=== PATIENT | male | born 1995 | race Caucasian/White ===

== ENCOUNTER 2018-06-16 03:14 | Inpatient (IN) ==
[2018-06-16] MEDS ORDERED: KETOROLAC TROMETHAMINE 15 MG/ML VIAL IV STA ×2 (03:52→05:18)
[2018-06-16] MEDS ORDERED: SODIUM CHLORIDE 0.9% 1000ML 1,000 ML IV ONE (04:29)
[2018-06-16 04:46] LABS: Basophils # (auto) 0.05 K/uL (0-0.2); Basophils % (auto) 0.6 %; Eosinophils # (auto) 0.21 K/uL (0-0.5); Eosinophils % (auto) 2.7 %; Hematocrit (blood only) 40.6 % (42-52); Hemoglobin 14.8 g/dL (14.0-18.0); Immature Granulocytes # (auto) 0.02 K/uL (0.00-0.02); Immature Granulocytes % (auto) 0.3 %; Lymphocytes # (auto) 2.44 K/uL (1.2-3.4); Mean Corpuscular Hgb Conc 36.5 g/dL (32-36); Mean Corpuscular Volume 83.4 fL (80-100); Mean Platelet Volume 11.6 fL (7.4-10.4); Monocytes # (auto) 0.69 K/uL (0.11-0.59); Monocytes % (auto) 8.8 %; Neutrophils # (auto) 4.45 K/uL (1.4-6.5); Neutrophils % (auto) 56.6 %; Platelet Count 167 K/uL (130-400); RDW Coefficient of Variation 12.2 % (11.5-14.5); RDW Standard Deviation 37.1 fL (36.4-46.3); Red Blood Count 4.87 M/uL (4.7-6.1); White Blood Count 7.86 K/uL (4.8-10.8)
[2018-06-16 04:54] LABS: BUN Creatinine Ratio 10.4 (10-20); Creatinine Clr Calc Pharmacy 103.2 ml/min; Est GFR (African American) 104.5; Est GFR (Non-African American) 90.1; Potassium 3.4 mmol/L (3.5-5.1)
[2018-06-16] MEDS ORDERED: ONDANSETRON INJ 2 MG/ML 2 ML VIAL IV STA (05:18)
[2018-06-16] MEDS ORDERED: MoRPHine SULFATE 2 MG/ML CARP IV STA (05:18)
--- NOTE | 2018-06-16 05:45 | History & Physical Report ---
Date of Service June 16, 2018 Assessment & Plan (1) Abdominal pain in male: 22 y/o M denies a significant medical history. Presented to the ER 06/13 with R sided flank pain and hematuria. He had a CT at that time demonstrating a 5 x 4 mm calculus of the mid to distal right ureter with resultant mild hydronephrosis. He was discharged from the ER as it was felt that this would pass spontaneously. He returns with worsening RLQ abdominal pain. Denies fevers or rigors. Describes occasional hematuria since then. An US follow-up demonstrated a calculus at the R UVJ consistent with the migration of his pain. Labs are unremarkable aside form hematuria. The pt is placed on IVF, analgesics, antiemetics and Flomax. He will be evaluated by urology. He is aware that smoking is deleterious to ones health. Full code - SCDs Total time for this admit including review of labs, meds, imaging, records - discussion with pt and ER attending - 33 min History of Present Illness Chief Complaint: abdominal pain Primary Care Provider: NO PCP 22 y/o M denies a significant medical history. Presented to the ER 06/13 with R sided flank pain and hematuria. He had a CT at that time demonstrating a 5 x 4 mm calculus of the mid to distal right ureter with resultant mild hydronephrosis. He was discharged from the ER as it was felt that this would pass spontaneously. He returns with worsening RLQ abdominal pain. Denies fevers or rigors. Describes occasional hematuria since then. An US follow-up demonstrated a calculus at the R UVJ consistent with the migration of his pain. Labs are unremarkable aside form hematuria. PMH: Denies Surgical: Denies Social: Smokes 1/2 pack cigarettes/wk, drinks on weekends, smokes marijuana afew times/wk. 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: No Beliefs That Will Affect Care: None Current Living Situation: Significant Other current occupational status: student current occupation: [employer] Student Feels Safe at Home: Yes Safety Concerns: Feels Safe At This Time Smoking Status: Current every day smoker Tobacco Type: cigarettes Cigarettes Per Day: 2-3 cigarettes/day Hx Alcohol Use: Yes Alcohol type: beer Hx Substance Use: Yes substance use type: marijuana Review of Systems Review of Systems: Gen: Denies fevers, night sweats, rigors, fatigue, malaise, weight loss/gain ENT: Denies congestion, throat pain, hearing loss Eyes: Denies acute visual changes CV: Denies CP, palpitations Pulmonary: Denies SOB, cough, wheezing GI: R flank pain intially, now in groin Neuro: Denies acute or unilateral weakness, acute gait impairment, headache or acute visual changes Musculoskeletal: Denies joint pain, inflammation Endocrine: Denies polydipsia, polyuria Skin: Denies acute rashe or ulcers Physical Exam Physical Exam: General: AAO x 3, no distress ENT: No erythema or exudates, no thrush Eyes: KRISHAN, EOMI Head and neck: Normocephalic, atraumatic, No JVD, neck is supple. Chest/heart: Nontender, S1,2, RRR, no murmurs, no gallops Lungs: CTAB, no wheezing or crackles Abdomen: Mildly tender in RLQ Neuro: AAO x 3, speech is clear, no unilateral weakness or loss of sensation, coordination intact Musculoskeletal: No joint inflammation, muscle tenderness, FROM Skin: No acute rashes or ulcers Extremities: No clubbing, cyanosis, edema Results & Data Vital Signs (Past 12 Hours) Vital Signs Temp Pulse Pulse Resp BP BP Pulse Ox 06/16/18 05:01 69 20 110/63 96 06/16/18 03:17 98.1 F 56 L 21 156/[address] abdomen/pelvis: 1. Mild right-sided hydroureteronephrosis secondary to a 5 x 4 x 4 mm calculus of the mid to distal right ureter at the level of S1. 2. No bowel obstruction or bowel wall thickening. 3. The appendix is not definitively seen in its entirety. No secondary signs of acute appendicitis.
--- NOTE | 2018-06-16 06:05 | XRay Report ---
KUB HISTORY: Acute right-sided flank pain with right ureteral calculus eval for right sided stone COMPARISON: CT abdomen and pelvis 06/13/2018 FINDINGS: The bowel gas pattern is non-obstructive. There is no organomegaly. The left renal shadow i s obscured by bowel gas. The previously described 5 mm calculus of the right ureter at the level of S 1 is not definitively seen on today's study. Left pelvic basin calcifications are suggestive of proba ble phleboliths. No nephrolithiasis identified. No pneumoperitoneum or pneumatosis. No fracture. IMPRESSION: No renal or ureteral calculi identified. The previously noted distal right ureteral calculus seen at the level of S1 is not identified on today's study. Electronically signed by: Gallo Rogers M.D. 06/16/2018 6:03 AM
--- NOTE | 2018-06-16 06:27 | Ultrasound Report ---
US renal/blad retro comp HISTORY: 22 years-old Male eval for right-sided ureteral stone follow-up study in a patient with rig ht hydronephrosis COMPARISON: CT abdomen and pelvis 06/13/2018 TECHNIQUE: Multiple real-time sonographic images of the kidneys and urinary bladder were obtained ass essing grayscale appearance and color flow FINDINGS: Right kidney measures 11.9 x 4.3 x 4.8 cm. Mild right-sided hydroureteronephrosis redemonstrated. No renal or ureteral calculi are seen. The left kidney measures 11.2 x 4.7 x 4.4 cm and is unremarkable without renal calculi, hydronephrosi s or suspicious mass lesions. 5 mm calculus noted about the distal right ureter at the level of the ureterovesicular junction. Righ t ureteral jet is not identified. Mild wall thickening of the urinary bladder with partial distention . Left ureteral jet is noted. IMPRESSION: 1. Persistent mild right-sided hydroureteronephrosis. 2. Distal migration of the 5 mm right ureteral calculus, now at the level of the ureterovesicular krista ction. 3. Normal left kidney. The above report was generated using voice recognition software. It may contain grammatical, syntax o r spelling errors. Electronically signed by: Gallo Rogers M.D. 06/16/2018 6:25 AM
[2018-06-16] MEDS ORDERED: ACETAMINOPHEN 325 MG TAB PO PRN (06:36)
[2018-06-16] MEDS ORDERED: MAGNESIUM HYDROXIDE SUSP 30 ML UDC PO PRN (06:36)
[2018-06-16] MEDS ORDERED: ONDANSETRON INJ 2 MG/ML 2 ML VIAL IV PRN (06:36)
[2018-06-16] MEDS ORDERED: ALUMINUM/MAGNESIUM SUSP 30 ML UDC PO PRN (06:36)
[2018-06-16] MEDS ORDERED: ZOLPIDEM TARTRATE 5 MG TAB PO PRN (06:36)
[2018-06-16] MEDS ORDERED: POLYETHYLENE (MIRALAX) 17 GM PACK PO PRN (06:36)
--- NOTE | 2018-06-16 07:56 | Urology Consultation ---
Date of Consultation June 16, 2018 Assessment & Plan (1) Hydronephrosis with renal calculous obstruction: A/P 22 yo male with R distal 5 mm ureteral stone and recurrent colic. Findings reviewed with patient. He reports he is currently more comfortable, no stones passed yet. Options reviewed - can have a trial of passage seen his improved symptoms, progression of calculus with distal location, offered endoscopic intervention today or could try to coordinate for outpatient ESWL. Seen his improvement he wishes to try to pass his stone over the course of the day - not unreasonable. Will provide diet, NPO for possible intervention tomorrow if his stone fails to pass or his symptoms persist. Patient vocalizes understanding of the treatment plan. Should be able to be discharged home with outpatient follow-up with our service if his stone passes. Thank you for allowing us to participate in this patient's acute care. Will follow. History of Present Illness Reason for Consultation: Right distal ureteral stone with persistent colic Attending Physician: Jorge Mei MD History of Present Illness Patient is a pleasant 22-year-old male who presents to the emergency room for the second time for a right ureteral stone. He was previously seen several days ago with acute onset of gross hematuria and right flank pain and underwent imaging in the emergency room demonstrating a right distal ureteral stone. He was discharged with an attempt of oral pain medication and stone passage but returned last night due to lower urinary tract symptoms, bladder pressure and recurrent intractable right flank pain. He is in the room with his girlfriend resting comfortably. He reports his pain is improved since being seen in the emergency room but he has passed no stone. He notes intermittent hematuria. Ultrasound imaging suggests a 5 mm stone at the right ureterovesical junctionand mild to moderate right sided hydro. Past notes and imaging are personally reviewed. Urologic consultation requested to assist with his acute care. This is his first stone episode. Allergies Allergy/AdvReac Type Severity Reaction Status Date / Time No Known Allergies Allergy Unverified 06/16/18 03:51 Home Medications Home Medications Medication Instructions Recorded Confirmed Type ibuprofen 400 mg PO Q6H PRN 06/16/18 06/16/18 History Patient History Medical History Hydronephrosis Renal colic on right side Ureteral calculi No acute medical problems Social History Preferred Language: Cook Islander Communication Ability: Effective Business Systems Technician Required: No Beliefs That Will Affect Care: None Current Living Situation: Significant Other current occupational status: student current occupation: [employer] Student Feels Safe at Home: Yes Safety Concerns: Feels Safe At This Time Smoking Status: Current every day smoker Tobacco Type: cigarettes Cigarettes Per Day: 2-3 cigarettes/day Hx Alcohol Use: Yes Alcohol type: beer Hx Substance Use: Yes substance use type: marijuana Immunizations: FHx noncontributory Review of Systems Constitutional: no fever and no chills Eyes: + corrective lenses; no blind spots and no diplopia Ear, Nose, Mouth, Throat: no ear trauma Respiratory: no hemoptysis Cardiovascular: no chest pain Gastrointestinal: + abdominal pain and + nausea; no coffee ground emesis Genitourinary: + hematuria Musculoskeletal: + back pain; no neck pain Integumentary: no acne and no boil Neurologic: no paralysis and no numbness Psychiatric: no hopelessness Endocrine: + fatigue Hematologic / Lymphatic: no easy bleeding and no lymphadenopathy Physical Exam Constitutional: WD/WN, vitals as above Eyes: eyes not dysmorphic ENMT: Ears: no external ear abnormality Neck: trachea midline; no anterior neck swelling Respiratory: no respiratory distress and does not use accessory muscles Cardiovascular: Vessels: radial pulses present Gastrointestinal (Abdomen): Inspection/Auscultation: abdomen not distended Percussion/Palpation: abdomen soft; abdomen nontender and no guarding Skin: normal turgor Neurologic: awake; not obtunded Psychiatric: Orientation: oriented x 3 Lymphatic: no lymphadenopathy Results & Data Vital Signs (Past 12 Hours) Vital Signs Temp Pulse Pulse Resp BP BP Pulse Ox 06/16/18 06:48 36.5 C 61 16 122/76 100 06/16/18 05:01 69 20 110/63 96 06/16/18 03:17 36.7 C 56 L 21 156/75 H 98 Laboratory Results Laboratory Results - last 48 hr 06/16/18 06/16/18 03:32 03:32 WBC 7.86 RBC 4.87 Hgb 14.8 Hct 40.6 L MCV 83.4 MCH 30.4 MCHC 36.5 H RDW Std Deviation 37.1 RDW Coeff of [place] 12.2 Plt Count 167 MPV 11.6 H Immature Gran % (Auto) 0.3 Neut % (Auto) 56.6 Lymph % (Auto) 31.0 [place] % (Auto) 8.8 Eos % (Auto) 2.7 Baso % (Auto) 0.6 Immature Gran # (Auto) 0.02 Neut # (Auto) 4.45 Lymph # (Auto) 2.44 [place] # (Auto) 0.69 H Eos # (Auto) 0.21 Baso # (Auto) 0.05 Sodium 138 Potassium 3.4 L Chloride 105 Carbon Dioxide 26 Anion Gap 7.0 BUN 12 Creatinine 1.14 Est Cr Clr Drug Dosing 103.2 Est GFR ( Amer) 104.5 Est GFR (Non-Af Amer) 90.1 BUN/Creatinine Ratio 10.4 Glucose 72 Calcium 9.0
[2018-06-16] MEDS: TAMSULOSIN HCL 0.4 MG CAP PO SCH (08:05)
[2018-06-16] MEDS: D5NSS + 20MEQ KCL 20 MEQ/1,000 ML BAG IV SCH ×2 (08:05→14:30)
[2018-06-16] MEDS: HYDROmorphone INJ 0.5 MG/0.5 ML SYR IV PRN ×3 (08:10→21:01)
--- NOTE | 2018-06-16 08:28 | Emergency Department Note ---
Entered by Edgardo No acting as a scribe for History of Present Illness General Chief complaint: Kidney Stone Stated complaint: LOW BACK PAIN, CLOUDY URINE Time Seen by Provider: 06/16/18 03:34 Source: patient Limitations: no limitations History of Present Illness Provider complaint: Right flank pain, urinary urgency, nausea Onset (ago): hour(s) (4.5) Location: back (Right flank) Pain Consistency: + constant Maximum Pain Intensity: 6 Quality: + other (Flank pain, urinary urgency) Associated symptoms: + nausea/vomiting Treatments prior to arrival: none The patient is a 22 year old male who presents to the Emergency Room with complaints of constant right sided flank pain and urinary urgency that began about 4.5 hours ago. The patient states that he was here in the Emergency Department 4 days ago for hematuria and flank pain. He received a CT scan that was initially red by Camille as negative and without any stones. Last night at 2300, 4.5 hours ago, the patient began to experience increased urinary urgency. He attempted to go to the restroom but was unable to void enough to relieve the pressure in his bladder. The patient then developed pain in the right flank. He adds that he did urinate a small amount 90 minutes prior to arrival. This urine was "dark," but did not appear bloody. The patient also notes that he felt nauseous and vomited shortly prior to arrival. He denies any leg cramping or leg swelling. Home Medications Home Medications Medication Instructions Recorded Confirmed Type ibuprofen 400 mg PO Q6H PRN 06/16/18 06/16/18 History Allergies Allergy/AdvReac Type Severity Reaction Status Date / Time No Known Allergies Allergy Unverified 06/16/18 03:51 Past Med/Surg History Medical History Hydronephrosis Renal colic on right side Ureteral calculi No acute medical problems Social History Preferred Language: Jordanian Communication Ability: Effective Respiratory Physician Required: No Beliefs That Will Affect Care: None Current Living Situation: Significant Other current occupational status: student current occupation: [employer] Student Feels Safe at Home: Yes Safety Concerns: Feels Safe At This Time Smoking Status: Current every day smoker Tobacco Type: cigarettes Cigarettes Per Day: 2-3 cigarettes/day Hx Alcohol Use: Yes Alcohol type: beer Hx Substance Use: Yes substance use type: marijuana Review of Systems See HPI for pertinent positives & negatives. He denies any fever, chills, upper respiratory symptoms, or cough. He denies any dizziness lightheadedness or headaches. He denies any chest pain, shortness of breath or diaphoresis. All other systems were reviewed and were negative Physical Exam Vital Signs Vital Signs - 24 hr 06/16/18 03:17 06/16/18 05:01 06/16/18 06:48 Temperature 36.7 C 36.5 C Temperature Source Oral Oral Sepsis Recent Fever Within 48 Hours No Sepsis Action Taken by Nursing No Action Required Pulse Rate 56 L Pulse Rate [Right Finger] 69 61 Pulse Rhythm [Right Finger] Regular Regular Pulse Strength [Right Finger] Normal Normal Respiratory Rate 21 20 16 Respiratory Effort / Characteristics Non-Labored Spontaneous Non-Labored Spontaneous Respiratory Depth Normal Normal Respiratory Pattern Regular Blood Pressure 156/75 H Blood Pressure [Right Arm] 110/63 122/76 Blood Pressure Mean 102 Blood Pressure Mean [Right Arm] 78 91 Blood Pressure Position [Right Arm] Lying Pulse Oximetry 98 96 100 Oxygen Delivery Method Room Air Room Air Room Air HEENT: Head - normocephalic and atraumatic Pupils are equal, round, and reactive to light. Extraocular eye muscles are intact, and sclera are a nicteric. Nose - moist nasal mucosa without discharge. Mouth - moist buccal mucosa. Oropharynx is nonerythematous and there is no tonsillar exudate or edema noted. Neck: Supple; no JVD, nuchal rigidity, cervical lymphadenopathy. Heart: Regular rate and rhythm. There is a normal S1 and S2 with no murmurs, clicks, or gallops appreciated. Lungs: Clear to auscultation bilaterally with no wheezes, rales, or rhonchi. Abdomen: Soft, completely nontender, nondistended, with good bowel sounds. Ther e are no palpable pulsatile masses or hepatosplenomegaly. There is no guarding, rigidity, or rebound noted. Extremities: No evidence of cyanosis, clubbing, or edema. There are easily palpable peripheral pulses. Skin: warm and dry with good turgor and no rashes. Course 0336: The patient was evaluated in room A2, and a complete history and physical examination were performed. Previous electronic medical records were reviewed. An IV lock was initiated and labs were drawn as above. 0356: Ketorolac Tromethamine (Toradol) 15 mg IV 0518: I checked on the patient at this time. The pain meds improved his pain, but now the pain is returning. 0526: Ketorolac Tromethamine (Toradol) [address], Morphine Sulfate (Morphine Sulfate) 2 mg IV NOW STA, Ondansetron HCl (Zofran) 4 mg IV NOW STA 0519: I reviewed the patient's case with Dr. Hamida Bullard [facility] Hospitalist. He will evaluate the patient for further management. 0529: Sodium Chloride (Nss 1000ml) 1,000 mls @ 999 mls/hr IV Administered Medications Hydromorphone HCl (Dilaudid) 0.5 mg IV Q4H PRN PRN Reason: Pain Stop: 06/30/18 06:35 Last Admin: 06/16/18 08:10 Dose: 0.5 mg Documented by: [id number] Potassium Chloride/Dextrose/Sod Cl (D5nss + 20meq Kcl) 20 meq in 1,000 mls @ 150 mls/hr IV .Q6H40M SHANTELLE Stop: 06/16/18 20:19 Last Admin: 06/16/18 08:05 Dose: 150 mls/hr Documented by: [id number] Tamsulosin HCl (Flomax) 0.4 mg PO QAM SHANTELLE Stop: 07/16/18 08:59 Last Admin: 06/16/18 08:05 Dose: 0.4 mg Documented by: [id number] Discontinued Medications Sodium Chloride (Nss 1000ml) 1,000 mls @ 999 mls/hr IV .Q1H1M ONE Stop: 06/16/18 05:29 Last Infusion: 06/16/18 06:10 Dose: 0 mls/hr Documented by: [id number] Admin: 06/16/18 05:09 Dose: 999 mls/hr Documented by: [id number] Ketorolac Tromethamine (Toradol) 15 mg IV NOW STA Stop: 06/16/18 03:53 Last Admin: 06/16/18 03:56 Dose: 15 mg Documented by: [id number] Ketorolac Tromethamine (Toradol) 15 mg IV NOW STA Stop: 06/16/18 05:19 Last Admin: 06/16/18 05:26 Dose: 15 mg Documented by: [id number] Morphine Sulfate (Morphine Sulfate) 2 mg IV NOW STA Stop: 06/16/18 05:19 Last Admin: 06/16/18 05:27 Dose: 2 mg Documented by: [id number] Ondansetron HCl (Zofran) 4 mg IV NOW STA Stop: 06/16/18 05:19 Last Admin: 06/16/18 05:26 Dose: 4 mg Documented by: [id number] Medical Decision Making Differential Diagnosis Differential diagnosis: renal colic, hydronephrosis, cystitis, obstructive uropathy Medical Records Attestation: I reviewed the patient's medical records. Home Medications Current Medication List: was personally reviewed by me Laboratory Data Attestation: I reviewed the patient's lab results. Result diagrams: 06/16/18 03:32 06/16/18 03:32 Lab Results 06/16/18 06/16/18 Range/Units 03:32 03:32 WBC 7.86 (4.8-10.8) K/uL RBC 4.87 (4.7-6.1) M/uL Hgb 14.8 (14.0-18.0) g/dL Hct 40.6 L (42-52) % MCV 83.4 (80-100) fL MCH 30.4 (25-34) pg MCHC 36.5 H (32-36) g/dL RDW Std Deviation 37.1 (36.4-46.3) fL RDW Coeff of [place] 12.2 (11.5-14.5) % Plt Count 167 (130-400) K/uL MPV 11.6 H (7.4-10.4) fL Immature Gran % (Auto) 0.3 % Neut % (Auto) 56.6 % Lymph % (Auto) 31.0 % [place] % (Auto) 8.8 % Eos % (Auto) 2.7 % Baso % (Auto) 0.6 % Immature Gran # (Auto) 0.02 (0.00-0.02) K/uL Neut # (Auto) 4.45 (1.4-6.5) K/uL Lymph # (Auto) 2.44 (1.2-3.4) K/uL [place] # (Auto) 0.69 H (0.11-0.59) K/uL Eos # (Auto) 0.21 (0-0.5) K/uL Baso # (Auto) 0.05 (0-0.2) K/uL Sodium 138 (136-145) mmol/L Potassium 3.4 L (3.5-5.1) mmol/L Chloride 105 (98-107) mmol/L Carbon Dioxide 26 (21-32) mmol/L Anion Gap 7.0 (3-11) BUN 12 (7-18) mg/dl Creatinine 1.14 (0.6-1.4) mg/dl Est Cr Clr Drug Dosing 103.2 ml/min Est GFR ( Amer) 104.5 Est GFR (Non-Af Amer) 90.1 BUN/Creatinine Ratio 10.4 (10-20) Glucose 72 (70-99) mg/dl Calcium 9.0 (8.5-10.1) mg/dl Imaging Data Radiologist's Impression: KUB HISTORY: Acute right-sided flank pain with right ureteral calculus eval for right sided stone COMPARISON: CT abdomen and pelvis 06/13/2018 FINDINGS: The bowel gas pattern is non-obstructive. There is no organomegaly. The left renal shadow is obscured by bowel gas. The previously described 5 mm calculus of the right ureter at the level of S1 is not definitively seen on today's study. Left pelvic basin calcifications are suggestive of probable phleboliths. No nephrolithiasis identified. No pneumoperitoneum or pneumatosis. No fracture. IMPRESSION: No renal or ureteral calculi identified. The previously noted distal right ureteral calculus seen at the level of S1 is not identified on today's study. Electronically signed by: Gallo Rogers M.D. 06/16/2018 6:03 AM US RENAL: There is a 5 mm shadowing stone in the distal right ureter near the UVJ, causing mild right hydronephrosis and hydroureter. Normal left kidney. Mild bladder wall thickening is probably related to incomplete distention. Cysti tis is difficult to exculse. Blood Pressure Blood Pressure Findings: Normal blood pressure MDM Narrative The patient is a 22 year old male who presents to the ED with urinary urgency and flank pain. Differential diagnosis includes renal colic, hydronephrosis, cystitis, obstructive uropathy. The patient was seen here 2 days ago in the emergency department with similar complaints and hematuria. The original CAT scan was interpreted by stat read and a 5 mm stone, unfortunately, was missed on that scan. The radiologist here at [facility] [address] [facility] over read this study and alerted staff here in the emergency department. On 2 separate occasions, the charge nurses tried to contact the patient with the additional findings on CAT scan but were unable to make contact. They left messages on the cell phone. When questioning the patient tonight about those messages, he never received them. We confirmed that the telephone number documented in the medical record was inaccurate. We corrected that tonight. The patient's pain was adequately treated with IV analgesia. The patient will be evaluated by the [facility] [address] [facility] Hospitalist for further inpatient care and urology will be consulted. Impression & Plan Hydronephrosis with renal calculous obstruction Discharge Plan Visit Data *Final* Discharge Date/Time: 06/16/18 06:21 Chief Complaint: Kidney Stone Stated Complaint: LOW BACK PAIN, CLOUDY URINE ED Provider: Libby Bahena Discharge Problem: Hydronephrosis with renal calculous obstruction Patient Disposition: Admitted As Inpatient Discharge Instructions Interventions: ED Discharge Assessment Last Done: 06/16/18 06:21 The scribe's documentation has been prepared under my direction and personally reviewed by me in its entirety. I confirm that the note above accurately reflects all work, treatment, procedures, and medical decision making performed by me.
--- NOTE | 2018-06-16 20:45 | History & Physical Bridge Note ---
Date of Service June 16, 2018 History & Physical Bridge Note I have examined the patient, reviewed the History & Physical and in the interval since the performance of the History & Physical I have noted the following changes of clinical significance: Patient still having intermittent pain responds to IV pain medicine. He is tolerating p.o. without nausea or vomiting. Plan is for cystoscopy and stent placement in the morning if he does not pass the stone by then Vitals reviewed Gen: AAOx3, NAD HEENT: Anicteric sclerae, EOMI CV: RRR no mgr nl S1S2 Pulm: CTAB no wcr Abd: +BS soft NT ND no masses or hernias Ext: No edema, 2+ DP pulses Skin: No rashes, warm/dry Neuro: Full strength throughout
[2018-06-17] MEDS: D5W AND NSS 1,000 ML IV SCH ×4 (01:48→23:54)
[2018-06-17] MEDS ORDERED: CIPROFLOXACIN 400 MG/200 ML BAG IV SCH (06:00)
--- NOTE | 2018-06-17 07:53 | XRay Report ---
XR KUB/Abdomen 1 view CLINICAL HISTORY: stone disease nephrocalcinosis COMPARISON STUDY: 06/16/2018 FINDINGS: The soft tissues, psoas shadows, renal outlines and intestinal gas pattern appear normal. T here is no evidence for bowel obstruction. No abnormal abdominal calcifications are seen. Small calci fication medial aspect right soft tissue pelvis. I cannot exclude distally right ureteral calculus. T his may been present on the prior study. IMPRESSION: 1. Potential distal right ureteral calculus versus vascular calcification. 2. otherwise negative for nephrocalcinosis. The above report was generated using voice recognition software. It may contain grammatical, syntax or spelling errors. Electronically signed by: Tyrone Brower M.D. 06/17/2018 7:51 AM
[2018-06-17] MEDS: TAMSULOSIN HCL 0.4 MG CAP PO SCH (08:38)
[2018-06-17] MEDS: HYDROmorphone INJ 0.5 MG/0.5 ML SYR IV PRN ×3 (08:41→23:12)
--- NOTE | 2018-06-17 09:21 | Anesthesiology Consultation ---
Date of Service June 17, 2018 Assessment & Plan (1) Hydronephrosis: (2) Encounter for pre-operative examination: Chart Review Chart Review: Acceptable Risk for Surgery and Patient NOT seen in Pre Admission Testing Consults Requested none NPO Date Last Intake of Fluids: 06/16/18 Time Last Intake of Fluids: 23:59 Date Last Intake of Solids: 06/16/18 History Surgery Operation Date: 06/17/18 13:05 Proposed Procedures p Cystoscopy, Right Retrograde Pyelogram, Ureteral Stent Placement, Possible Ureteroscopy, Laser Lithotripsy - Dereje Stratton II, DO Height/Weight Height: 1.85 m Weight: 70.364 kg Allergies Allergy/AdvReac Type Severity Reaction Status Date / Time No Known Allergies Allergy Unverified 06/16/18 03:51 Medications Home Medications Medication Instructions Recorded Confirmed Last Taken ibuprofen 400 mg PO Q6H PRN 06/16/18 06/16/18 03/18/18 03:00 400mg Active Medications Generic Name Dose Route Start Last Admin Trade Name Freq PRN Reason Stop Dose Admin Hydromorphone HCl 0.5 mg 06/16/18 06:36 06/17/18 08:41 Dilaudid IV 06/30/18 06:35 0.5 mg Q4H PRN Administration Pain Dextrose/Sodium Chloride 1,000 mls @ 125 mls/hr 06/17/18 01:30 06/17/18 08:41 D5w And Nss IV 07/17/18 01:29 125 mls/hr .Q8H SHANTELLE Administration Ondansetron HCl 4 mg 06/16/18 06:36 06/16/18 16:31 Zofran IV 07/16/18 06:35 4 mg Q6H PRN Administration Nausea Tamsulosin HCl 0.4 mg 06/16/18 09:00 06/17/18 08:38 Flomax PO 07/16/18 08:59 0.4 mg QAM SHANTELLE Administration Past Medical History Medical History Hydronephrosis Renal colic on right side Ureteral calculi No acute medical problems Past Surgical History Surgical History No history of previous surgery Social History Smoking Status: Current every day smoker tobacco type: cigarettes Smoking cigarettes per day: 2-3 cigarettes/day Hx Alcohol Use: Yes Alcohol type: beer alcohol intake frequency: a few times a week Hx Substance Use: Yes substance use type: marijuana Physical Exam Vital Signs Last Vital Signs Temp 36.4 C L 06/17/18 08:00 Pulse 59 L 06/17/18 08:00 Resp 10 L 06/17/18 08:00 BP 98/62 L 06/17/18 08:00 Pulse Ox 99 06/17/18 08:00 Testing Laboratory Results 06/16/18 03:32 06/16/18 03:32 (1) Hydronephrosis Hydronephrosis type: with ureteral calculous obstruction Qualified Code(s): N13.2 - Hydronephrosis with renal and ureteral calculous obstruction
--- NOTE | 2018-06-17 09:28 | Urology Progress Note ---
Date of Service June 17, 2018 Assessment & Plan (1) Hydronephrosis with renal calculous obstruction: A/P 22 yo male with R distal 5 mm ureteral stone, mild hydro and recurrent colic. Unable to spontaneously pass stone with IV fluids and tamsulosin. Renal colic requiring IV pain control. Options discussed with patient. He would like to move forward with surgical treatment today. Continue NPO status, strain all urine. Findings reviewed with Dr. Stratton. Given his persistent renal colic and urinary symptoms in the context of an obstructing R stone, will proceed with OR for cysto, R RPG and R stent placement, possible ureteroscopy, laser litho, stone basketing depending on findings. Risks and benefits to be reviewed with patient by Dr. Stratton. OR notified. Will cover with IV Cipro preoperatively. Subjective 22yo M with 5mm R distal ureteral stone. Pt doing okay through the evening, however still requiring IV pain control. Continues to strain urine, has not passed stone. KUB demonstrates distal stone persisting, minimal migration. Pt continues to describe reflux pain with voiding. Some urgency/frequency. Some bladder spasms. Denies hematuria/dysuria. Review of Systems Review of Systems: All systems reviewed & are unremarkable except as noted in HPI & below Physical Exam Physical Exam: A&Ox3 RRR abd soft, nontender Results & Data Vital Signs (Past 12 Hours) Vital Signs Temp Pulse Pulse Resp BP Pulse Ox 06/17/18 08:00 36.4 C L 59 L 10 L 98/62 L 99 06/16/18 23:32 36.7 C 58 L 14 119/62 98 Laboratory Results Laboratory Results - last 48 hr 06/16/18 06/16/18 03:32 03:32 WBC 7.86 RBC 4.87 Hgb 14.8 Hct 40.6 L MCV 83.4 MCH 30.4 MCHC 36.5 H RDW Std Deviation 37.1 RDW Coeff of [place] 12.2 Plt Count 167 MPV 11.6 H Immature Gran % (Auto) 0.3 Neut % (Auto) 56.6 Lymph % (Auto) 31.0 [place] % (Auto) 8.8 Eos % (Auto) 2.7 Baso % (Auto) 0.6 Immature Gran # (Auto) 0.02 Neut # (Auto) 4.45 Lymph # (Auto) 2.44 [place] # (Auto) 0.69 H Eos # (Auto) 0.21 Baso # (Auto) 0.05 Sodium 138 Potassium 3.4 L Chloride 105 Carbon Dioxide 26 Anion Gap 7.0 BUN 12 Creatinine 1.14 Est Cr Clr Drug Dosing 103.2 Est GFR ( Amer) 104.5 Est GFR (Non-Af Amer) 90.1 BUN/Creatinine Ratio 10.4 Glucose 72 Calcium 9.0
[2018-06-17] MEDS ORDERED: PROPOFOL IV EMULSION 10 MG/ML 20 ML VIAL IV ONE (12:43)
[2018-06-17] MEDS ORDERED: LIDOCAINE HCL 2% 2 ML VIAL/AMP(20MG/ML) INFIL ONE (12:43)
[2018-06-17] MEDS ORDERED: ONDANSETRON INJ 2 MG/ML 2 ML VIAL ONE (12:43)
[2018-06-17] MEDS ORDERED: MIDAZOLAM HCL 1 MG/ML 2ML VIAL ONE (12:43)
[2018-06-17] MEDS ORDERED: fentaNYL citrate 100 MCG/2 ML VIAL ONE (12:44)
[2018-06-17] MEDS ORDERED: LACTATED RINGER'S 1,000 ML IV SCH (13:00)
[2018-06-17] MEDS ORDERED: ePHEDrine sulfate 50 MG/ML AMP IV PRN ×2 (13:00→13:29)
[2018-06-17] MEDS ORDERED: ATROPINE SULFATE 0.1 MG/ML 10ML SYR IV PRN ×2 (13:00→13:29)
[2018-06-17] MEDS ORDERED: SCOPOLAMINE 1.5 MG TDSY ONE (13:24)
[2018-06-17] MEDS ORDERED: ONDANSETRON INJ 2 MG/ML 2 ML VIAL IV PRN (13:29)
[2018-06-17] MEDS ORDERED: IOTHALAMATE MEGLUMINE II 17.2% 250 ML VIAL ONE (13:33)
[2018-06-17] MEDS ORDERED: DEXAMETHASONE SOD INJ 4 MG/ML VIAL ONE (14:22)
--- NOTE | 2018-06-17 14:36 | Operative Report ---
Post Operative Report Pre & Post Diagnosis Obstructing right Stone Same Operation Date: 06/17/18 13:05 <No data on this case meets the specified criteria> Procedure Cystoscopy with right ureteroscopy and laser lithotripsy and stone extraction and retrograde pyelogram and stent placement. Operation Date: 06/17/18 13:05 <No data on this case meets the specified criteria> Surgeon Dereje Stratton, II, DO Aquatic Performer None Estimated Blood Loss 1 Findings Consistent with Post-Op Diagnosis Specimens Stone right ureter Drains 6 Fr Multilength Anesthesia Type General Complications none Disposition Disposition: Recovery Room Indications Obstructing stone that failed passage and hydration. Risks and benefits discussed at length. Description of Procedure Patient was consented and brought back to the operating room. Patient was placed under anesthesia in the supine position and moved to the dorsal lithotomy position. Patient was prepped and draped in the regular sterile fashion. A time out was completed. A 30degree Cystoscope was placed into the bladder and the entire bladder was examined. The UO's were identified. The UO was cannulized with a catheter and a retrograde pyelogram was completed. A wire was then placed. The ureteroscope was taken into the ureter. The stone was identified in the distal ureter. A laser fiber was selected and the stones were pulverized to dust and small fragments. Larger fragments were grasped and removed and sent for analysis. The entire area was once again examined. No residual large fragments or areas of concern were noted. The scope was slowly removed with the wire left in place. Contrast was placed through the scope for a pyelogram to assist in stent placement. The entire ureter was examined as the scope was slowly removed. No obstructions or other areas of concern were noted. With the wire in place, a 6 Fr Double J stent was placed. It was confirmed with fluoroscopy. With the stent in place, the bladder was emptied. The scope was removed. The patient was cleaned, aroused from anesthesia, and transferred to the pacu in stable condition having tolerated the procedure well with no complications. I was present and participated in all aspects of the procedure. The patient will be monitored in the PACU until transferred. I attest to the content of the Intraoperative Record and any orders documented therein. Any exceptions are noted below.
--- NOTE | 2018-06-17 15:05 | Fluoroscopy Report ---
FL retrograde includes kub HISTORY: 22 years-old Male RIGHT RETROGRADE/CYSTO right-sided cystourethrogram with stent placement COMPARISON: CT abdomen and pelvis 06/13/2018 TECHNIQUE: 4 spot fluoroscopic images of the abdomen and pelvis were obtained utilizing 27.6 seconds fluoroscopy time FINDINGS: A guidewire is noted within the right ureter. Contrast opacification of the right ureter and renal co llecting system demonstrates persistent hydroureteronephrosis. Subsequent images demonstrate placemen t of a right ureteral stent which appears to be in satisfactory positioning. IMPRESSION: Fluoroscopic assistance as above. Please see procedural report for further details. The above report was generated using voice recognition software. It may contain grammatical, syntax o r spelling errors. Electronically signed by: Gallo Rogers M.D. 06/17/2018 3:03 PM
[2018-06-17] MEDS: fentaNYL citrate 100 MCG/2 ML VIAL IV PRN ×4 (15:18→15:38)
--- NOTE | 2018-06-17 15:55 | Anesthesiology Progress Note ---
Date of Service June 17, 2018 Anesthesia Post Procedure Vital Signs Vital Signs: Temp Pulse Pulse Pulse Resp BP BP 06/17/18 15:45 36.4 C L 52 L 13 105/52 L 06/17/18 15:35 36.4 C L 58 L 11 L 109/62 06/17/18 15:33 36.4 C L 52 L 16 99/58 L 06/17/18 15:25 59 L 15 105/56 L 06/17/18 15:15 54 L 16 95/54 L 06/17/18 15:05 59 L 16 97/59 L 06/17/18 14:58 36.2 C L 62 16 100/55 L 06/17/18 12:35 36.5 C 60 60 16 112/82 06/17/18 09:38 55 L 11 L 112/72 06/17/18 08:00 36.4 C L 59 L 10 L 98/62 L 06/16/18 23:32 36.7 C 58 L 14 119/62 Pulse Ox 06/17/18 15:45 99 06/17/18 15:35 100 06/17/18 15:33 98 06/17/18 15:25 98 06/17/18 15:15 99 06/17/18 15:05 96 06/17/18 14:58 97 06/17/18 12:35 99 06/17/18 09:38 06/17/18 08:00 99 06/16/18 23:32 98 Pain Intensity Lower Back: Pain Intensity: 4 Notes Mental Status: alert / awake / arousable and participated in evaluation Patient Amnestic to Procedure: Yes Nausea / Vomiting: adequately controlled Pain: adequately controlled Airway Patency, RR, SpO2: stable & adequate BP & HR: stable & adequate Hydration State: stable & adequate Anesthetic Complications: no major complications apparent and Pt Satisfied with anesthetic care
[2018-06-17] MEDS: TRAMADOL HCL 50 MG TABLET PO PRN (16:41)
[2018-06-17] MEDS ORDERED: KETOROLAC 30 MG/ML VIAL IV ONE (17:44)
[2018-06-17] MEDS ORDERED: KETOROLAC TROMETHAMINE 15 MG/ML VIAL IV PRN (17:45)
--- NOTE | 2018-06-17 18:48 | Hospitalist Progress Note ---
Date of Service June 17, 2018 Assessment & Plan (1) Hydronephrosis with renal calculous obstruction: s/p cystoscopy, right ureteral stent placement, laser lithotripsy with basket extraction of stone fragments of right-sided distal kidney stone. appreciate urology's assistance. plan - pain control tonight. diet as tolerated. IV fluids. anti-emetics. repeat BMP in am. cipro for UTI prophylaxis. defer use of pyridium and/or oxybutinin to urology. hopefully d/c in am. Present on Admission?: Yes Subjective I saw the patient post-cystoscopy. He was complaining of considerable suprapubic pain and dysuria. Original flank pain was resolved. No nausea or emesis. Was told he would be spending the night tonight. Review of Systems Constitutional: no fever Respiratory: no dyspnea Cardiovascular: no chest pain Physical Exam Constitutional: well developed, well nourished and + acute distress (due to pain) ENMT: external ear and nose normal, oropharynx normal Respiratory: normal respiratory effort, lungs clear to auscultation Cardiovascular: Rate/Rhythm: regular rate and regular rhythm Heart Sounds: normal S1 and normal S2; no murmur Vessels: posterior tibial pulses present and dorsalis pedis pulses present; no JVD Extremities: no edema Gastrointestinal (Abdomen): Inspection/Auscultation: normal bowel sounds Percussion/Palpation: + abdomen tender (suprapubic ); no guarding and no he patosplenomegaly Psychiatric: A+Ox3, euthymic affect Results & Data Vital Signs (Past 12 Hours) Vital Signs Temp Pulse Pulse Pulse Pulse Resp BP 06/17/18 18:05 36.6 C 61 18 06/17/18 17:35 62 18 06/17/18 16:39 67 18 114/72 06/17/18 16:10 36.5 C 52 L 17 101/59 L 06/17/18 15:55 36.4 C L 55 L 16 109/54 L 06/17/18 15:45 36.4 C L 52 L 13 105/52 L 06/17/18 15:35 36.4 C L 58 L 11 L 109/62 06/17/18 15:33 36.4 C L 52 L 16 99/58 L 06/17/18 15:25 59 L 15 105/56 L 06/17/18 15:15 54 L 16 95/54 L 06/17/18 15:05 59 L 16 97/59 L 06/17/18 14:58 36.2 C L 62 16 100/55 L 06/17/18 12:35 36.5 C 60 60 16 112/82 06/17/18 09:38 55 L 11 L 112/72 06/17/18 08:00 36.4 C L 59 L 10 L BP Pulse Ox 06/17/18 18:05 113/73 99 06/17/18 17:35 105/64 06/17/18 16:39 100 06/17/18 16:10 100 06/17/18 15:55 100 06/17/18 15:45 99 06/17/18 15:35 100 06/17/18 15:33 98 06/17/18 15:25 98 06/17/18 15:15 99 06/17/18 15:05 96 06/17/18 14:58 97 06/17/18 12:35 99 06/17/18 09:38 06/17/18 08:00 98/62 L 99
[2018-06-18 06:28] LABS: BUN Creatinine Ratio 9.8 (10-20); Calcium 8.4 mg/dl (8.5-10.1); Creatinine Clr Calc Pharmacy 146.6 ml/min; Est GFR (African American) 147.5; Est GFR (Non-African American) 127.2; Potassium 4.2 mmol/L (3.5-5.1)
[2018-06-18] MEDS: D5W AND NSS 1,000 ML IV SCH (06:56)
[2018-06-18] MEDS: TAMSULOSIN HCL 0.4 MG CAP PO SCH (08:19)
[2018-06-18] MEDS: TRAMADOL HCL 50 MG TABLET PO PRN ×2 (08:21→21:34)
[2018-06-18] MEDS: HYDROCODONE/ACETAMOPHEN 5/325MG TAB PO PRN ×2 (09:37→16:19)
[2018-06-18] MEDS ORDERED: PHENAZOPYRIDINE HCL 200 MG TAB PO STA (10:08)
[2018-06-18] MEDS ORDERED: HYDROmorphone INJ 0.5 MG/0.5 ML SYR IV STA (11:50)
--- NOTE | 2018-06-18 11:52 | Urology Progress Note ---
Date of Service June 18, 2018 Assessment & Plan (1) Hydronephrosis with renal calculous obstruction: POD #1 cysto, R URS, LL Pain poorly controlled with toradol and pyridium. Reflux pain with voiding and dysuria. Will give one time dose of dilaudid to get him through acute pain. RN made aware. Otherwise tolerating PO okay. Update: Received a message from RN later today that patient is feeling much better with dilaudid and pyridium, able to void 600cc. Recommend conversion to PO meds. Hopeful to discharge home tomorrow if pain controlled. Recommend flomax, oxybutynin 5mg IR for bladder spasms, narcotic and possibly short rx for toradol for pain control. Will plan for outpatient f/u with KUB in 1-2 weeks, possible stent removal at that time. Subjective 22yo M POD #1 s/p cysto, R URS, LL. Pt was very uncomfortable on exam today. He states the pain is so severe every time voids. Relates reflux pain with voiding and dysuria. Some hematuria. We added pyridium to his regimen prior to evaluation this afternoon, no relief yet. VSS, afebrile. Bp soft. Labs reviewed, Cr. 0.78. Review of Systems Review of Systems: All systems reviewed & are unremarkable except as noted in HPI & below Physical Exam Physical Exam: A&Ox3 RRR abd soft, nontender no edema Results & Data Vital Signs (Past 12 Hours) Vital Signs Temp Pulse Resp BP Pulse Ox 06/18/18 11:32 46 L 16 106/65 98 06/18/18 07:25 36.6 C 46 L 16 89/47 L 98 06/18/18 03:25 36.8 C 51 L 16 97/55 L 96 Laboratory Results Laboratory Results - last 48 hr 06/18/18 05:34 Sodium 140 Potassium 4.2 Chloride 108 H Carbon Dioxide 26 Anion Gap 6.0 BUN 8 Creatinine 0.78 Est Cr Clr Drug Dosing 146.6 Est GFR ( Amer) 147.5 Est GFR (Non-Af Amer) 127.2 BUN/Creatinine Ratio 9.8 L Glucose 140 H Calcium 8.4 L
[2018-06-18] MEDS: POLYETHYLENE (MIRALAX) 17 GM PACK PO SCH (11:58)
[2018-06-18] MEDS: SENNA 8.6 MG TAB PO SCH (12:27)
[2018-06-18] MEDS: PHENAZOPYRIDINE HCL 200 MG TAB PO PRN (16:12)
--- NOTE | 2018-06-18 19:25 | Urology Progress Note ---
Date of Service June 18, 2018 Assessment & Plan (1) Hydronephrosis with renal calculous obstruction: POD #1 cysto, R URS, LL Pain poorly controlled with toradol and pyridium. Reflux pain with voiding and dysuria. Will give one time dose of dilaudid to get him through acute pain. RN made aware. Otherwise tolerating PO okay. Update: Received a message from RN later today that patient is feeling much better with dilaudid and pyridium, able to void 600cc. Recommend conversion to PO meds. Hopeful to discharge home tomorrow if pain controlled. Recommend flomax, oxybutynin 5mg IR for bladder spasms, narcotic and possibly short rx for toradol for pain control. Also send home on pyridium 200 mg po tid Will plan for outpatient f/u with [facility] in 1-2 weeks, possible stent removal at that time. Subjective 22yo M POD #1 s/p cysto, R URS, LL. Pt was very uncomfortable on exam today. He states the pain is so severe every time voids. Relates reflux pain with voiding and dysuria. Some hematuria. We added pyridium to his regimen prior to evaluation this afternoon, no relief yet. VSS, afebrile. Bp soft. Labs reviewed, Cr. 0.78. Results & Data Vital Signs (Past 12 Hours) Vital Signs Temp Pulse Resp BP BP Pulse Ox 06/18/18 15:19 36.6 C 52 L 18 94/45 L 97 06/18/18 11:32 46 L 16 106/65 98 06/18/18 07:25 36.6 C 46 L 16 89/47 L 98
--- NOTE | 2018-06-18 21:30 | Hospitalist Progress Note ---
Date of Service June 18, 2018 Assessment & Plan (1) Hydronephrosis with renal calculous obstruction: POD #1 - s/p cystoscopy, right ureteral stent placement, laser lithotripsy with basket extraction of stone fragments of right-sided distal kidney stone. appreciate urology's assistance. He did poorly overnight with severe, ongoing pain -- likely stent pain, bladder spasms, reflux pain, dysuria, etc. No d/c home today. Start pyridium 200mg TID prn. [place] prn. Oxybutinin prn. Bowel regimen. Try to stop dilaudid today in preparation for d/c home. Ambulate. PO intake as tolerated. No signs of UTI at this time. (2) Constipation: Start miralax with senna. Opiate-induced. No signs of ileus. (3) DVT prophylaxis: low risk ambulate defer on chemical means Subjective patient states he "feels terrible" pain is severe with voiding has right "kidney pain" and dysuria minimal flatus but no vomiting some headache able to eat/drink w/o issues ambulating to bathroom gross hematuria present Review of Systems Constitutional: no fever Respiratory: no dyspnea Cardiovascular: no chest pain Physical Exam Constitutional: + acute distress (due to pain) and + ill appearing ENMT: external ear and nose normal, oropharynx normal Respiratory: normal respiratory effort, lungs clear to auscultation Cardiovascular: Rate/Rhythm: regular rate and regular rhythm Heart Sounds: normal S1 and normal S2; no murmur Vessels: posterior tibial pulses present and dorsalis pedis pulses present; no JVD Extremities: no edema Gastrointestinal (Abdomen): Inspection/Auscultation: normal bowel sounds Percussion/Palpation: + abdomen tender (suprapubic ); no guarding and no hepatosplenomegaly Psychiatric: A+Ox3, euthymic affect Results & Data Vital Signs (Past 12 Hours) Vital Signs Temp Pulse Resp BP BP Pulse Ox 06/18/18 15:19 36.6 C 52 L 18 94/45 L 97 06/18/18 11:32 46 L 16 106/65 98 Laboratory Results Laboratory Results - last 24 hr 06/18/18 05:34 Sodium 140 Potassium 4.2 Chloride 108 H Carbon Dioxide 26 Anion Gap 6.0 BUN 8 Creatinine 0.78 Est Cr Clr Drug Dosing 146.6 Est GFR ( Amer) 147.5 Est GFR (Non-Af Amer) 127.2 BUN/Creatinine Ratio 9.8 L Glucose 140 H Calcium 8.4 L (1) Constipation Constipation type: drug induced constipation Qualified Code(s): K59.03 - Drug induced constipation
[2018-06-19 06:39] LABS: BUN Creatinine Ratio 8.8 (10-20); Calcium 8.1 mg/dl (8.5-10.1); Creatinine Clr Calc Pharmacy 108.9 ml/min; Est GFR (African American) 115.4; Est GFR (Non-African American) 99.6
[2018-06-19] MEDS: HYDROCODONE/ACETAMOPHEN 5/325MG TAB PO PRN (07:23)
[2018-06-19] MEDS: POLYETHYLENE (MIRALAX) 17 GM PACK PO SCH (07:23)
[2018-06-19] MEDS: PHENAZOPYRIDINE HCL 200 MG TAB PO PRN (07:23)
[2018-06-19] MEDS: TAMSULOSIN HCL 0.4 MG CAP PO SCH (07:24)
[2018-06-19] MEDS: SENNA 8.6 MG TAB PO SCH (07:24)
[2018-06-19] MEDS: TRAMADOL HCL 50 MG TABLET PO PRN ×2 (09:09→14:15)
--- NOTE | 2018-06-19 09:32 | Urology Progress Note ---
Date of Service June 19, 2018 Assessment & Plan (1) Hydronephrosis with renal calculous obstruction: 22yo M POD #2 s/p Right URS/LL with ureteral stent placement. Doing much better today. Tolerating stent with PO pain control, pyridium Now having some issues with constipation - no BM since Sunday. May need bowel regimen per Primary team. Okay to discharge from our perspective. Working on outpatient f/u for stent removal, pt knows we will call him with date/time. Subjective Doing much better today, appears more comfortable also. Still having pain with voiding, some reflux pain however much more tolerable than yesterday. Controlled with PO pain control. Denies n/v. No BM since Sunday, typically has BM every day. Review of Systems Review of Systems: All systems reviewed & are unremarkable except as noted in HPI & below Physical Exam Physical Exam: A&Ox3 RRR abd soft, nontender no edema Results & Data Vital Signs (Past 12 Hours) Vital Signs Temp Pulse Pulse Resp BP BP Pulse Ox 06/19/18 07:45 36.5 C 54 L 18 126/70 97 06/19/18 07:05 36.8 C 52 L 16 99/58 L 98 06/18/18 22:41 36.8 C 50 L 18 108/67 98
[2018-06-19] MEDS ORDERED: BISACODYL 10 MG SUPP PR STA (10:08)
[2018-06-19] MEDS ORDERED: BISACODYL 5 MG TABEC PO ONE (12:04)
--- NOTE | 2018-06-24 09:37 | Discharge Summary ---
Date of Service date of admission - 06/16/2018 date of discharge - 06/19/2018 Admission HPI Per Admitting Provider 22 y/o male denies a significant medical history. Presented to the ER 06/13 with R sided flank pain and hematuria. He had a CT at that time demonstrating a 5 x 4 mm calculus of the mid to distal right ureter with resultant mild hydronephrosis. He was discharged from the ER as it was felt that this would pass spontaneously. He returns with worsening RLQ abdominal pain. Denies fevers or rigors. Describes occasional hematuria since then. An US follow-up demonstrated a calculus at the R UVJ consistent with the migration of his kidney stone. Labs are unremarkable aside form hematuria. Principal Diagnosis right sided obstructing kidney stone s/p laser lithotripsy and ureteral stent deployment Discharge Exam Constitutional well developed and well nourished; no acute distress and not ill appearing ENMT external ear and nose normal, oropharynx normal Respiratory normal respiratory effort, lungs clear to auscultation Cardiovascular Rate/Rhythm: regular rate and regular rhythm Heart Sounds: normal S1 and normal S2; no murmur Vessels: posterior tibial pulses present and dorsalis pedis pulses present; no JVD Extremities: no edema Gastrointestinal (Abdomen) Inspection/Auscultation: normal bowel sounds Percussion/Palpation: + abdomen tender (suprapubic and right flank - minimal/mild); no guarding and no hepatosplenomegaly Psychiatric A+Ox3, euthymic affect Discharge Data Allergies Allergy/AdvReac Type Severity Reaction Status Date / Time No Known Allergies Allergy Unverified 06/16/18 03:51 Consultations [facility] - Dereje Stratton DO Procedures Performed 1. renal ultrasound - IMPRESSION: 1. Persistent mild right-sided hydroureteronephrosis. 2. Distal migration of the 5 mm right ureteral calculus, now at the level of the ureterovesicular junction. 3. Normal left kidney. 2. Operation Date: 06/17/18 Cystoscopy, Right Retrograde Pyelogram, Ureteroscopy, Laser Lithotripsy, Basket Extraction of Stone Fragments, Right Ureteral Stent Placement - Dereje Stratton II, DO Hospital Course (1) Hydronephrosis with renal calculous obstruction: A trial of spontaneous passage of his right-sided kidney stone was unsuccessful in the first 24 hours of his stay. Additionally he had severe pain. He elected to pursue surgical intervention. Therefore Dr. Dereje Stratton performed cystoscopy, right ureteral stent placement, and laser lithotripsy with basket extraction of stone fragments of the right-sided distal kidney stone. Post-operatively he did poorly from a pain standpoint. He suffered from significant stent pain, bladder spasms, reflux pain, and dysuria. He stayed hospitalized 1 extra day for additional pain control. At discharge he will continue on pyridium 200mg TID prn as well as norco prn. He never had symptoms or signs of UTI while hospitalized. Labs and vitals remained stable. Discharge creatinine was 1. He will follow-up with urology within 1 week of discharge for stent retrieval. (2) Constipation: Opiate-induced. Resolved with multiple bowel agents. Was passing stool/flatus before discharge. Never had ileus. He was advised to take a combination of senna with miralax for his bowel regimen while taking narcotics. (3) Tobacco use disorder: Counseled to quit smoking. Total Time Total Time Spent Total Time Spent (In Minutes): 25 Total Time Includes: Examination of the Patient, Discharge Planning, Medication Reconciliation and Communication With Other Providers Discharge Plan Discharge Items Patient Disposition: Home - Self-Care Reason For Visit: OBSTRUCTING CALCULUS (kidney stone) Discharge Diagnosis: right-sided kidney stone -- laser lithotripsy by urology with extraction of the stone and placement of a stent. Discharge Goals: Decrease discomfort, Diagnostic testing and Therapeutic intervention Activity: As commented below Activity Comment: no driving while taking narcotic pain killers Lifting: Wait until after follow-up appointment Sexual Activity: Wait until after follow-up appointment Exercise/Sports: Wait until after follow-up appointment Exercise Comment: no strenuous activities or heavy lifting over 20-25 pounds Driving/Machine Use Comment: again no driving while taking narcotic pain killers Non-emergency contact: Primary Care Provider and Urologist Call non-emergency contact if: you have any medication questions, your symptoms worsen, your pain is not controlled, your pain is worsening, your pain is concerning for you and your temperature is above 101 Follow-up/Referrals: [facility] [Provider Group] (Please, follow up at [facility]. *A nurse from this office will call you with the appointment information. This office is located at [address] in [place]. If you have any questions, call the office at [phone].) Justin Gil, DO [Primary Care Provider] - 06/24/18 12:50 pm (Primary Care Physician: Please, follow up at [facility] with Dr. Justin Gil on SundayJune 24 at 12:50 pm. *The office is located at [address] [place] [address] in [place]. This is the big building located next to this hospital. If you need to change or cancel this appointment, call the office at [phone]. ) Diet: Regular Addtl Provider Instructions: Urology Instructions: Please take all medications as prescribed and keep all follow-ups as scheduled. Please call [facility] at [phone] with any questions, concerns or need to reschedule appointments for any reason. We are happy to assist you. While you have a ureteral stent in place: Some discomfort is normal. Certain movements may trigger pain or a feeling that you need to urinate. You may also feel mild soreness or pressure before or during urination. These symptoms should go away a few days after the stent is removed. Your urine may be slightly pink or red. This is due to bleeding caused by minor irritation from the stent. This may happen on and off while you have the stent, it is not harmful and is to be expected. Medication to help minimize discomfort or bladder spasms, or to prevent infection may be prescribed. Take this as directed. Drink plenty of fluids to help flush out your urinary tract. How long will you need a stent? An appointment should already be made for you for stent removal, unless directed otherwise. The stent is often taken out after the blockage in the ureter is treated or the ureter has healed. This may take 1-2 weeks, or longer. If a stent is needed for a longer period of time, it may need to be exchanged every few months. Likely prior to your followup appointment you will be asked to get an X-ray, please complete this the night before or morning of your appointment. When to call [facility] at [phone]: Your urine contains heavy blood clots You are constantly leaking urine Fever of 101F or higher, chills, nausea, or vomiting Your pain is not relieved with medication The end of the stent comes out of your urethra From Vasiliy Anthony, Hospitalist - You were treated for a 5mm right-sided kidney stone by urology. You underwent a cystoscopy with laser lithotripsy (a laser was used to break up the stone). The stone was extracted and a stent was placed in the ureter. At this time we recommend - 1. flomax (tamsulosin) once daily every morning. 2. hydrocodone-acetaminophen pain killer -- 1 tablet every 6 hours as needed for pain. These pills can make you sleepy and WILL cause constipation. Do NOT drive while taking narcotic pain killers. Do NOT drink alcohol while taking this medication. Do NOT take extra [id number]-[id number] tylenol since the hydrocodone has tylenol in it. 3. for bladder pain/burning on urination - may take pyridium (phenazopyridine) 200mg every 8 hours as needed. This medication will cause an orange color to your tears and urine. 4. for constipation - purchase these products [id number] -- * miralax one serving daily * senna (senakot) 2 tabs daily * you will especially need these while on the hydrocodone pain killer 5. plenty of fluids - water/lemonade are best. You can't get enough when you are a kidney stone "former." 6. limit consumption of caffeinated beverages - this includes dark sodas, tea, coffee. Follow-up -- see separate section for details Prescriptions: New sennosides [Senokot] 8.6 mg Tablet 17.2 mg PO QAM PRN (Reason: burning on urination or bladder pain) Qty: 30 RF: 0 polyethylene glycol 3350 [Miralax] 17 gram Powder In Packet 17 g PO DAILY Qty: 1 RF: 0 hydrocodone-acetaminophen [Bruneau] 5-325 mg Tablet 1 tab PO Q6H PRN (Reason: pain) Qty: 15 RF: 0 phenazopyridine [Pyridium] 200 mg Tablet 200 mg PO TID PRN (Reason: pain) Qty: 20 RF: 0 tamsulosin 0.4 mg Capsule 0.4 mg PO QAM Qty: 14 RF: 0 Discontinued ibuprofen 400 mg Tablet 400 mg PO Q6H PRN (Reason: Pain) RF: 0 Stand-Alone Forms: [employer], Opioid Pain Management Krames/Other Patient Handouts: Infec VRE, Kidney Stones Discharge Orders: Discharge Order (Routine); Ordered 06/19/18 Ordered By: Vasiliy Anthony Admission Data Admit Date/Time: 06/16/18 05:43 Attending Provider: Vasiliy Anthony Admit Provider: Jorge Mei Primary Care Provider: Justin Gil Other Providers: oJrge Mei ; Ian Powell I. Service: Surgical Services Other Interventions: Discharge Summary Assessment (RN) Last Done: 06/19/18 14:03 Pending Studies at Discharge: Yes Studies:: stone analysis (tells us the type of stone you had) DC Date/Time DO NOT enter until pt leaves facility: 06/19/18 14:20
[2018-06-24 09:38] LABS: Component 2 DNR
== END 2018-06-19 14:20 | disposition home or self-care (01) | DRG 661 ==
LOC: ED 03:14 → SUATTDRO 05:43 → 3E 05:43
DX: F12.90 Cannabis use, unspecified, uncomplicated; F17.200 Nicotine dependence, unspecified, uncomplicated; K59.03 Drug induced constipation; T40.2X5A Adverse effect of other opioids, initial encounter; N13.2 Hydronephrosis with renal and ureteral calculous obstruction